=== PATIENT | male | born 1980 | race Caucasian/White ===

== ENCOUNTER 2017-02-04 01:46 | Emergency (ER) | payer MEDICAID ==
[~2017-02-04] VITALS: Ht 154.9 cm; Wt 72.5 kg
[2017-02-04 01:52] VITALS: Ht 154.9 cm; Wt 72.5 kg
[2017-02-04] MEDS ORDERED: SODIUM CHLORIDE 0.9% 1L BAG IV* STA (02:15)
[2017-02-04] MEDS ORDERED: SOD CHLORIDE 0.9% 1,000 ML IV STA (02:29)
[2017-02-04] MEDS ORDERED: METOCLOPRAMIDE 10 MG INJ IV STA (02:29)
[2017-02-04 03:01] LABS: BASOPHIL # 0.1 10^3/ul (0.0-0.1); BASOPHILS % 0.5 % (0.0-2.0); EOSINOPHILS # 0.2 10^3/ul (0.0-0.5); EOSINOPHILS % 1.4 % (0.0-7.0); HEMATOCRIT 41.6 % (42.0-52.0); LYMPHOCYTES # 0.9 10^3/ul (0.8-2.9); LYMPHOCYTES % 8.5 % (15.0-51.0); MEAN CORPUSCULAR HEMOGLOBIN 29.6 pg (29.0-33.0); MEAN CORPUSCULAR HGB CONC 33.7 g/dl (32.0-37.0); MEAN CORPUSCULAR VOLUME 87.9 fl (82.0-101.0); MEAN PLATELET VOLUME 10.7 fl (7.4-10.4); MONOCYTE # 0.7 10^3/ul (0.3-0.9); NEUTROPHILS % 83.3 % (39.0-77.0); PLATELET COUNT 207 10^3/UL (140-415); RED BLOOD COUNT 4.73 10^6/ul (4.70-6.10); RED CELL DISTRIBUTION WIDTH 11.8 % (11.5-14.5); WHITE BLOOD COUNT 10.8 10^3/ul (4.8-10.8)
[2017-02-04 03:11] LABS: ADD UMIC NO; UR ASCORBIC ACID NEGATIVE (NEGATIVE); UR BACTERIA FEW /HPF (NONE SEEN); UR BILIRUBIN (Dip) NEGATIVE (NEGATIVE); UR BLOOD (Dip) NEGATIVE (NEGATIVE); UR CLARITY SLIGHTLY CLOUDY (CLEAR); UR COLOR YELLOW (YELLOW); UR GLUCOSE (Dip) NEGATIVE (NEGATIVE); UR KETONES (Dip) NEGATIVE (NEGATIVE); UR LEUKOCYTE ESTERASE (Dip) NEGATIVE Leu/ul (NEGATIVE); UR NITRITE (Dip) NEGATIVE (NEGATIVE); UR RBC 0 /HPF (0-5); UR SPECIFIC GRAVITY (Dip) 1.016 (1.003-1.030); UR TOTAL PROTEIN (Dip) NEGATIVE (NEGATIVE); UR UROBILINOGEN (Dip) 1+ mg/dL (NEGATIVE)
[2017-02-04 03:13] LABS: ALANINE AMINOTRANSFERASE 52 IU/L (13-69); ALBUMIN 4.2 g/dl (3.3-4.9); ALBUMIN/GLOBULIN RATIO 1.23; ALKALINE PHOSPHATASE 92 IU/L (42-121); ANION GAP 12 (8-16); ASPARTATE AMINO TRANSFERASE 29 IU/L (15-46); BILIRUBIN,INDIRECT 0.6 mg/dl (0-1.1); BILIRUBIN,TOTAL 0.6 mg/dl (0.2-1.3); BLOOD UREA NITROGEN 15 mg/dl (7-20); CALCIUM 9.2 mg/dl (8.4-10.2); CARBON DIOXIDE 25 mmol/L (21-31); CHLORIDE 108 mmol/L (97-110); CREATININE 0.76 mg/dl (0.61-1.24); GLUCOSE 108 mg/dl (70-220); POTASSIUM 3.3 mmol/L (3.5-5.1); SODIUM 142 mmol/L (135-144); TOTAL PROTEIN 7.6 g/dl (6.1-8.1)
[2017-02-04 03:24] LABS: TROPONIN-I < 0.012 ng/ml (0.00-0.12)
[2017-02-04 03:52] VITALS: BP 135/86; PULSE 82; RESP 18; TEMP 98.8
--- NOTE | 2017-02-04 04:01 | ERD ---
ER Documentation Chief Complaint Date/Time DATE: 02/04/17 TIME: 03:57 Chief Complaint dizziness, weakness, denies pain/not in distress - after eating in n out? HPI 36-year-old male previously healthy presenting to the ER complaining of generalized weakness and dizziness after eating a hamburger today. He has an associated gradual onset headache in the frontal area of his head. He rates it at a 6 out of 10. He complains of mild diffuse abdominal aching as well. He has associated nausea but no vomiting or diarrhea. He also complains of chills. He denies chest pain or shortness of breath.No family history of cardiac disease. No personal history of cardiac disease. ROS All systems reviewed and are negative except as per history of present illness. Allergies Allergies: Coded Allergies: No Known Allergy (Unverified , 02/04/17) PMhx/Soc Medical and Surgical Hx: pt denies Medical Hx, pt denies Surgical Hx Hx Alcohol Use: Yes Hx Substance Use: No Hx Tobacco Use: No Smoking Status: Never smoker FmHx Family History: No coronary disease, No diabetes Physical Exam Vitals Vital Signs Date Time Temp Pulse Resp B/P Pulse Ox O2 Delivery O2 Flow Rate FiO2 02/04/17 03:52 98.8 82 18 135/86 100 Room Air 02/04/17 01:52 99.2 99 20 136/75 99 Physical Exam Const: Well-appearing, no apparent distress, nontoxic Head: Atraumatic Eyes: Normal Conjunctiva, PERRLA, EOMI, no nystagmus ENT: Dry mucous membranes Neck: Full range of motion..~ No meningismus. Resp: Clear to auscultation bilaterally Cardio: Regular rate and rhythm, no murmurs Abd: Soft, non tender, non distended. Normal bowel sounds Skin: No petechiae or rashes Back: No midline or flank tenderness Ext: No cyanosis, or edema Neur: Awake and alert Psych: Normal Mood and Affect Result Diagram: 02/04/17 0233 02/04/17 0233 Results 24 hrs Laboratory Tests Test 02/04/17 02:30 02/04/17 02:33 Urine Color YELLOW Urine Clarity SLIGHTLY CLOUDY Urine pH 7.0 Urine Specific Madill 1.016 Urine Ketones NEGATIVEmg/dL Urine Nitrite NEGATIVEmg/dL Urine Bilirubin NEGATIVEmg/dL Urine Urobilinogen 1+mg/dL Urine Leukocyte Esterase NEGATIVELeu/ul Urine Microscopic RBC 0/HPF Urine Microscopic WBC 1/HPF Urine Bacteria FEW/HPF Urine Hemoglobin NEGATIVEmg/dL Urine Glucose NEGATIVEmg/dL Urine Total Protein NEGATIVEmg/dl White Blood Count 10.810^3/ul Red Blood Count 4.7310^6/ul Hemoglobin 14.0g/dl Hematocrit 41.6% Mean Corpuscular Volume 87.9fl Mean Corpuscular Hemoglobin 29.6pg Mean Corpuscular Hemoglobin Concent 33.7g/dl Red Cell Distribution Width 11.8% Platelet Count 78747^3/UL Mean Platelet Volume 10.7fl Neutrophils % 83.3% Lymphocytes % 8.5% Monocytes % 6.0% Eosinophils % 1.4% Basophils % 0.5% Nucleated Red Blood Cells % 0.0/100WBC Neutrophils # 9.010^3/ul Lymphocytes # 0.910^3/ul Monocytes # 0.710^3/ul Eosinophils # 0.210^3/ul Basophils # 0.110^3/ul Nucleated Red Blood Cells # 0.010^3/ul Sodium Level 142mmol/L Potassium Level 3.3mmol/L Chloride Level 108mmol/L Carbon Dioxide Level 25mmol/L Anion Gap 12 Blood Urea Nitrogen 15mg/dl Creatinine 0.76mg/dl Glucose Level 108mg/dl Calcium Level 9.2mg/dl Total Bilirubin 0.6mg/dl Direct Bilirubin 0.00mg/dl Indirect Bilirubin 0.6mg/dl Aspartate Amino Transf (AST/SGOT) 29IU/L Alanine Aminotransferase (ALT/SGPT) 52IU/L Alkaline Phosphatase 92IU/L Troponin I < 0.012ng/ml Total Protein 7.6g/dl Albumin 4.2g/dl Globulin 3.40g/dl Albumin/Globulin Ratio 1.23 Lipase 110U/L Current Medications Medications (Trade) Dose Ordered Sig/Deanna Route PRN Reason Start Time Stop Time Status Last Admin Dose Admin Sodium Chloride 2250 ml 2,250 ml BOLUS OVER 2 HOURS STAT IV* 02/04/17 02:15 02/04/17 02:16 DC Sodium Chloride (NS) 1,000 ml @ 1,000 mls/hr Q1H STAT IV 02/04/17 02:29 02/04/17 03:28 DC 02/04/17 02:35 Metoclopramide HCl (Reglan) 10 mg ONCE STAT IV 02/04/17 02:29 02/04/17 02:31 DC 02/04/17 02:34 Procedures/[facility] EKG: Rate/Rhythm: Normal Sinus Rhythm QRS, ST, T-waves: Mild anterior ST elevations, likely benign early repolarization Impression: No evidence of ischemia or arrhythmia Labs CBC: no anemia or evidence of infection CMP: Mild hypokalemia, otherwise unremarkable Lipase: no evidence of pancreatitis Troponin within normal limits UA: no evidence of infection [facility] Patient is presenting with multiple symptoms after eating a hamburger today. His vitals are stable and he is afebrile and nontoxic on my exam. I have a low suspicion for acute surgical abdomen, acute coronary syndrome, aortic dissection , or intracerebral hemorrhage. There is no evidence of sepsis. Patient was treated with IV fluids and anti-emetics. Upon reevaluation he felt much better and did not have any dizziness, weakness, or chills. The etiology of his symptoms is unclear at this time, however I do not suspect an acute medical emergency. Follow-up with PCP was recommended for tomorrow. Return precautions were discussed. Patient was discharged in stable condition. Departure Diagnosis: Primary Impression: Dizziness Condition: Stable Patient Instructions: Dizziness, Unk Cause [facility]: [facility] Usted se mclean hecho un examen mdico de control que le indica que no est en franco condicin que requiera tratamiento urgente en el Departamento de Emergencia. Un estudio ms profundo y el tratamiento de martin condicin pueden esperar sin ningn riesgo hasta que usted sea atendida/o en el consultorio de martin mdico o franco cl aldo. Es responsabilidad suya arreglar franco ross para el seguimiento del maureen. MANEJO DE CONDICIONES NO URGENTES EN EL FUTURO 1) Si usted tiene un mdico de atencin primaria: Usted debera llamar a martin mdico de atencin primaria antes de venir al departamento de emergencia. Despus de las horas de consultorio, martin doctor o martin asociado/a est disponible por telfono. El mdico o enfermero de sirena en el servicio telefnico puede asesorarle por soto medio para atender el problema, o maureen contrario se puede programar franco ross. 2) Si usted no tiene un mdico de atencin primaria: Llame al mdico o clnica de referencia que aparece abajo chon las horas de consultorio para hacer franco ross para que le vean. CLINICAS: [facility] [phone] [facility] [phone] [facility] [phone] [facility] [facility] [phone] [facility]. [facility] [phone] [address] [phone] [address] Additional Instructions: Marilee franco ross con martin medico primario en 1-2 leos. Regresa a la ari de emergencias si estas empeorando. SARAHY MOREJON MD Feb 04, 2017 04:01
== END 2017-02-04 04:05 | disposition home or self-care (01) ==
LOC: E/R 01:46
DX: R42 Dizziness and giddiness (principal); R40.2252 Coma scale, best verbal response, oriented, at arrival to emergency department; R40.2142 Coma scale, eyes open, spontaneous, at arrival to emergency department; R40.2362 Coma scale, best motor response, obeys commands, at arrival to emergency department
CPT/HCPCS: 36415; 80053; 81001; 83690; 84484; 85025; 96374; J2765; J7030; Z7502; 81003